=== PATIENT | female | born 1995 | race African-American/Black ===

== ENCOUNTER 2016-09-08 18:41 | Emergency (ER) | payer SELFPAY ==
[~2016-09-08] VITALS: Ht 175.3 cm; Wt 75.0 kg
[2016-09-08] MEDS ORDERED: PREDNISONE 20MG TABLET PO STA (22:53)
[2016-09-08] MEDS ORDERED: ALBUTEROL (0.083%) 2.5MG/3ML NEB HHN STA (22:53)
[2016-09-08] MEDS ORDERED: IPRATROPIUM BROMIDE (0.02%) 0.5MG/2.5ML NEB HHN STA (22:53)
[2016-09-09 00:51] VITALS: BP 118/60
== END 2016-09-09 00:53 | disposition home or self-care (01) ==
LOC: ER 18:41
DX: B36.0 Pityriasis versicolor (principal); J45.901 Unspecified asthma with (acute) exacerbation; F17.200 Nicotine dependence, unspecified, uncomplicated; F12.10 Cannabis abuse, uncomplicated; F12.90 Cannabis use, unspecified, uncomplicated; Z72.0 Tobacco use
CPT/HCPCS: 94640; 99283; J7512; J7611; Z7610